=== PATIENT | female | born 1960 | race Caucasian/White ===

== ENCOUNTER 2016-12-01 11:11 | Emergency (ER) | payer OTHER ==
[2016-12-01 11:39] VITALS: BP 110/67
--- NOTE | 2016-12-01 12:35 | UC ---
Throat Pain/Nasal Micheal HPI - HPI Summary HPI Summary: 3 days of worsening sore throat , some nausea, fever chills and body aches - History of Current Complaint Chief Complaint: UCRespiratory Stated Complaint: THROAT PAIN Time Seen by Provider: 12/01/16 12:09 Hx Obtained From: Patient Hx Last Menstrual Period: NOW ?: No Onset/Duration: Sudden Onset, Lasting Days - 3, Still Present, Worse Since - today Severity: Moderate Pain Intensity: 6 Pain Scale Used: 0-10 Numeric Cough: None Associated Signs & Symptoms: Positive: Fever - Allergies/Home Medications Allergies/Adverse Reactions: Allergies Allergy/AdvReac Type Severity Reaction Status Date / Time No Known Allergies Allergy Verified 12/01/16 11:31 Home Medications: Home Medications Citalopram Hydrobromide [Celexa] 1 tab PO DAILY 12/01/16 [History Confirmed ] PMH/Surg Hx/FS Hx/Imm Hx Previously Healthy: Yes Endocrine History Of: Denies: Diabetes, Thyroid Disease Cardiovascular History Of: Denies: Cardiac Disorders, Hypertension, Pacemaker/ICD Respiratory History Of: Denies: COPD, Asthma GI/ History Of: Denies: Ulcer Cancer History Of: Denies: Breast Cancer - Surgical History Surgical History: Yes Surgery Procedure, Year, and Place: PYLENIDAL CYST SURGERY, EGG DONATION, COLONOSCOPY - Family History Known Family History: Negative: Other - breast CA - Social History Occupation: Employed Full-time Lives: With Family Alcohol Use: Occasionally Substance Use Type: None Smoking Status (MU): Never Smoked Tobacco - Immunization History Most Recent Influenza Vaccination: HAD FLU SHOT IN THE FALL Review of Systems Constitutional: Fever, Chills, Fatigue Skin: Negative Eyes: Negative ENT: Sore Throat Respiratory: Negative Cardiovascular: Negative Gastrointestinal: Other - nausea Genitourinary: Negative Motor: Negative Neurovascular: Negative Musculoskeletal: Negative Neurological: Negative Psychological: Negative All Other Systems Reviewed And Are Negative: Yes Physical Exam Triage Information Reviewed: Yes Appearance: Well-Nourished, Ill-Appearing, Pain Distress Vital Signs: Initial Vital Signs Temp 100.5 F 12/01/16 11:33 Pulse 77 12/01/16 11:33 Resp 16 12/01/16 11:33 BP 110/67 12/01/16 11:33 Pulse Ox 98 12/01/16 11:33 Vital Signs Reviewed: Yes Eye Exam: Normal Eyes: Positive: Conjunctiva Clear ENT Exam: Other ENT: Positive: Hearing grossly normal, Pharyngeal erythema, TMs normal. Negative: Nasal congestion, Nasal drainage, Tonsillar swelling, Tonsillar exudate, Trismus, Muffled/hoarse voice Dental Exam: Normal Neck exam: Normal Neck: Positive: Supple, Nontender, No Lymphadenopathy Respiratory Exam: Normal Respiratory: Positive: Chest non-tender, Lungs clear, Normal breath sounds, No respiratory distress, No accessory muscle use Cardiovascular Exam: Normal Cardiovascular: Positive: RRR, No Murmur, Pulses Normal, Brisk Capillary Refill Abdominal Exam: Normal Abdomen Description: Positive: Nontender, No Organomegaly, Soft Bowel Sounds: Positive: Present Musculoskeletal Exam: Normal Musculoskeletal: Positive: Strength Intact, ROM Intact, No Edema Neurological Exam: Normal Neurological: Positive: Alert Psychological Exam: Normal Skin Exam: Normal Diagnostics - Laboratory Diagnostic Studies Completed/Ordered: Strep A- invalid x 2 Throat Pain/Nasal Course/Dx - Course Assessment/Plan: amoxicillin, ibuprofen, tylenol, rest increase fluids, follow with pcp re-check prn - Differential Dx/Diagnosis Differential Diagnosis/HQI/PQRI: Laryngitis, Otitis Media, Peritonsillar Abscess , Pharyngitis, Sinusitis, URI Provider Diagnoses: Pharyngitis Discharge - Discharge Plan Condition: Stable Disposition: HOME Prescriptions: Amoxicillin CAP* 500 mg PO Q12H #20 cap Patient Education Materials: Ibuprofen (By mouth), Amoxicillin (By mouth), Pharyngitis (ED) Referrals: Rajesh Griffith MD [Primary Care Provider] - If Needed
== END 2016-12-01 12:49 | disposition home or self-care (01) ==
LOC: UCEAST 11:11
DX: J02.9 Acute pharyngitis, unspecified (principal)
CPT/HCPCS: 99212; G0463

== ENCOUNTER 2016-12-04 17:24 | Emergency (ER) | payer OTHER ==
[2016-12-04 17:45] VITALS: BP 117/79
--- NOTE | 2016-12-04 18:06 | UC ---
Throat Pain/Nasal Micheal HPI - HPI Summary HPI Summary: Seen 4 days ago for sore throat---rx with amoxicillin, is not getting better as fast as she felt she should be---now has worsening sinus pain, - History of Current Complaint Chief Complaint: UCRespiratory Stated Complaint: THROAT PAIN Time Seen by Provider: 12/04/16 17:50 Hx Obtained From: Patient Hx Last Menstrual Period: March 2016 ?: No Onset/Duration: Sudden Onset, Lasting Days - 5, Still Present - but a little better Severity: Moderate - in sinus Cough: None Associated Signs & Symptoms: Positive: Sinus Discomfort, Nasal Discharge, Fever - no resolved - Allergies/Home Medications Allergies/Adverse Reactions: Allergies Allergy/AdvReac Type Severity Reaction Status Date / Time No Known Allergies Allergy Verified 12/01/16 11:31 Home Medications: Home Medications Ibuprofen TAB* [Advil TAB*] 12/04/16 [History] Pseudoephedrine TAB* [Sudafed TAB*] 12/04/16 [History] PMH/Surg Hx/FS Hx/Imm Hx Previously Healthy: Yes Endocrine History Of: Denies: Diabetes, Thyroid Disease Cardiovascular History Of: Denies: Cardiac Disorders, Hypertension, Pacemaker/ICD Respiratory History Of: Denies: COPD, Asthma GI/ History Of: Denies: Ulcer Cancer History Of: Denies: Breast Cancer - Surgical History Surgical History: Yes Surgery Procedure, Year, and Place: PYLENIDAL CYST SURGERY, EGG DONATION, COLONOSCOPY - Family History Known Family History: Negative: Other - breast CA - Social History Occupation: Employed Full-time Lives: With Family Alcohol Use: Occasionally Substance Use Type: None Smoking Status (MU): Never Smoked Tobacco - Immunization History Most Recent Influenza Vaccination: HAD FLU SHOT IN THE FALL Review of Systems Constitutional: Fever - 5 days ago, Fatigue - continues Skin: Negative Eyes: Negative ENT: Negative Respiratory: Negative Cardiovascular: Negative Gastrointestinal: Negative Genitourinary: Negative Motor: Negative Neurovascular: Negative Musculoskeletal: Negative Neurological: Negative Psychological: Negative All Other Systems Reviewed And Are Negative: Yes Physical Exam Triage Information Reviewed: Yes Appearance: Well-Appearing, No Pain Distress, Well-Nourished Vital Signs: Initial Vital Signs Temp 98.8 F 12/04/16 17:40 Pulse 64 12/04/16 17:40 Resp 12 12/04/16 17:40 BP 117/79 12/04/16 17:40 Pulse Ox 98 12/04/16 17:40 Vital Signs Reviewed: Yes Eye Exam: Normal Eyes: Positive: Conjunctiva Clear ENT Exam: Normal ENT: Positive: Normal ENT inspection, Hearing grossly normal, Pharynx normal, Nasal congestion, Nasal drainage, TMs normal. Negative: Tonsillar swelling, Tonsillar exudate, Trismus, Muffled/hoarse voice Dental Exam: Normal Neck exam: Normal Neck: Positive: Supple, Nontender, No Lymphadenopathy Respiratory Exam: Normal Respiratory: Positive: Chest non-tender, Lungs clear, Normal breath sounds, No respiratory distress, No accessory muscle use Cardiovascular Exam: Normal Cardiovascular: Positive: RRR, No Murmur, Pulses Normal, Brisk Capillary Refill Musculoskeletal Exam: Normal Musculoskeletal: Positive: Strength Intact, ROM Intact, No Edema Neurological Exam: Normal Neurological: Positive: Alert, Muscle Tone Normal Psychological Exam: Normal Skin Exam: Normal Throat Pain/Nasal Course/Dx - Course Assessment/Plan: finish antibiodics, add flonase for sinus symptoms, follow with pcp prn - Differential Dx/Diagnosis Differential Diagnosis/HQI/PQRI: Influenza, Pharyngitis, Sinusitis, URI Provider Diagnoses: pharyngitis, uri Discharge - Discharge Plan Condition: Stable Disposition: HOME Prescriptions: Fluticasone NASAL SPRAY 50MCG* [Flonase NASAL SPRAY 50MCG*] 2 spray BOTH NARES DAILY #1 btl Patient Education Materials: Pharyngitis (ED), Rhinosinusitis (ED), How to Use Nasal [place] (ED) Referrals: Rajesh Griffith MD [Primary Care Provider] - If Needed
== END 2016-12-04 18:15 | disposition home or self-care (01) ==
LOC: UCEAST 17:24
DX: J06.9 Acute upper respiratory infection, unspecified (principal); J02.9 Acute pharyngitis, unspecified
CPT/HCPCS: 99211; G0463

== ENCOUNTER 2017-04-20 23:05 | Emergency (ER) | payer OTHER ==
--- NOTE | 2017-04-21 00:23 | ED ---
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---not completely sure about LOC - History Of Current Complaint Chief Complaint: EDFacialInjury Stated Complaint: FALL/HEAD INJURY Time Seen by Provider: 04/21/17 00:14 Hx Obtained From: Patient Hx Last Menstrual Period: March 2016 Mechanism Of Injury: Blunt Trauma, Fall From A Standing Position Onset/Duration: Started Hours Ago, Traumatic, Still Present Onset of Pain: Immediate Severity Currently: Moderate Severity Initially: Moderate Pain Intensity: 7 Pain Scale Used: 0-10 Numeric Location of Head Injury: Frontal Location: Discrete At: - mostly nose Character: Pressure, Aching Alleviating Factor(s): Rest, Ice Associated Signs And Symptoms: Swelling, Bruising - Allergies/Home Medications Allergies/Adverse Reactions: Allergies Allergy/AdvReac Type Severity Reaction Status Date / Time No Known Allergies Allergy Verified 12/01/16 11:31 PMH/Surg Hx/FS Hx/Imm Hx Previously Healthy: Yes Endocrine/Hematology History: Denies: Hx Diabetes, Hx Thyroid Disease Cardiovascular History: Denies: Hx Hypertension, Hx Pacemaker/ICD Respiratory History: Denies: Hx Asthma, Hx Chronic Obstructive Pulmonary Disease (COPD) GI History: Denies: Hx Ulcer Sensory History: Denies: Hx Hearing Aid Psychiatric History: Denies: Hx Panic Disorder - Cancer History Hx Chemotherapy: No Hx Radiation Therapy: No - Surgical History Surgery Procedure, Year, and Place: PYLENIDAL CYST SURGERY, EGG DONATION, COLONOSCOPY Hx Anesthesia Reactions: No - Immunization History Hx Pertussis Vaccination: No Immunizations Up to Date: Yes Infectious Disease History: No Infectious Disease History: Denies: Hx Clostridium Difficile, Hx Hepatitis, Hx Human Immunodeficiency Virus (HIV), Hx of Known/Suspected MRSA, Hx Shingles, Hx Tuberculosis, Hx Known/ Suspected VRE, Hx Known/Suspected VRSA, History Other Infectious Disease, Traveled Outside the [place] in Last 30 Days - Family History Known Family History: Positive: Other - breast CA - Social History Occupation: Employed Full-time Lives: With Family Alcohol Use: Occasionally Hx Substance Use: No Substance Use Type: Reports: None Hx Tobacco Use: No Smoking Status (MU): Never Smoked Tobacco Review of Systems Constitutional: Negative Eyes: Negative ENT: Other Positive: Epistaxis, Other - nasal pain, Cardiovascular: Negative Respiratory: Negative Gastrointestinal: Negative Genitourinary: Negative Musculoskeletal: Other Positive: Arthralgia - right knee Skin: Other Positive: Other - abrasion on face Neurological: Negative Psychological: Normal All Other Systems Reviewed And Are Negative: Yes Physical Exam Triage Information Reviewed: Yes Vital Signs On Initial Exam: Initial Vitals Temp Pulse Resp BP Pulse Ox 97.6 F 61 14 87/60 98 04/20/17 23:16 04/20/17 23:16 04/20/17 23:16 04/20/17 23:16 04/20/17 23:16 Vital Signs Reviewed: Yes Appearance: Positive: Well-Appearing, Well-Nourished, Pain Distress - mild, Signs of Trauma - abrasion on face and nose and right knee Skin: Positive: Warm, Skin Color Reflects Adequate Perfusion, Dry Head/Face: Positive: Other - elyssa; head facal abrasion and nasal abrasion, evidence of epistaxis that has now resolved. Negative: Temporal Artery Tenderness, TMJ Tenderness, Scalp, Cephalohematoma Eyes: Positive: Normal, EOMI, TAMIKO, Conjunctiva Clear ENT: Positive: Normal ENT inspection, Hearing grossly normal, Pharynx normal, TMs normal, Other - blood on narss, noseptal hematoma. Negative: Tonsillar swelling, Tonsillar exudate, Trismus Neck: Positive: Supple, Nontender, No Lymphadenopathy Respiratory/Lung Sounds: Positive: Clear to Auscultation, Breath Sounds Present , Decreased Breath Sounds Cardiovascular: Positive: Normal, RRR, Pulses are Symmetrical in both Upper and Lower Extremities Abdomen Description: Positive: Nontender, No Organomegaly, Soft Bowel Sounds: Positive: Present Musculoskeletal: Positive: Strength/ROM Intact, Pain @ - right knee Neurological: Positive: Normal, Sensory/Motor Intact, Alert, Oriented to Person Place, Time. Negative: Dysphagia Psychiatric: Positive: Normal, Affect/Mood Appropriate AVPU Assessment: Alert - Thomas Coma Scale Best Eye Response: 4 - Spontaneous Best Motor Response: 6 - Obeys Commands Best Verbal Response: 5 - Oriented Coma Scale Total: 15 Diagnostics - Vital Signs Vital Signs Temp Pulse Resp BP Pulse Ox 04/20/17 23:18 97.6 F 61 14 87/60 98 04/20/17 23:16 97.6 F 61 14 87/60 98 - Laboratory Diagnostic Studies Comment: nasal bone fractures, ct of brain and xray of right knee WNL Lab Statement: Any lab studies that have been ordered have been reviewed, and results considered in the medical decision making process. Re-Evaluation - Re-Evaluation First Eval Change: Improved - Alert and orientated, 1/2 cm laceration on nose repaired with skin glue excellent approximation Head Injury Course/Dx Assessment/Plan: abrasion care, post concussion and head injury care, follow with PCP/ENT - Diagnoses Differential Diagnosis/HQI/PQRI: Concussion With LOC, Concussion Without LOC, Contusion, Nasal Fracture Provider Diagnoses: Concussion syndrome, Nasal fracture, Abrasion of face, Abrasion of right knee Is Visit Related: No Discharge - Discharge Plan Condition: Stable Disposition: HOME Patient Education Materials: Acetaminophen (By mouth), Ibuprofen (By mouth), Nasal Fracture (ED), Concussion (ED), Abrasion (ED), Post Concussion Syndrome ( ED), Ice Pack Application (ED) Referrals: Rajesh Griffith MD [Primary Care Provider] - 1 Week Additional Instructions: BACITRACIN IS PREFERRED OVER TRIPLE ANTIBIOTIC OINTMENT
[2017-04-21] MEDS ORDERED: traMADol TAB* 50 MG PO ONE (00:25)
[2017-04-21] MEDS ORDERED: Ondansetron ODT TAB* 4 MG PO ONE (00:26)
[2017-04-21 05:08] VITALS: BP 100/57
--- NOTE | 2017-04-21 07:57 | RAD ---
INDICATION: Head injury. COMPARISON: Comparison is made with a prior MRI of the brain from August 04, 2015. TECHNIQUE: Contiguous axial sections of the brain were obtained from the skull base to the vertex without contrast. FINDINGS: The ventricles, cisterns and sulci are within normal limits. No significant focal abnormality or mass effect is seen. There is no evidence for hemorrhage. No significant focal osseous abnormality is seen. The visualized portion of the paranasal sinuses and mastoid air cells appear clear. IMPRESSION: NO EVIDENCE FOR ACUTE INTRACRANIAL ABNORMALITY.
--- NOTE | 2017-04-21 07:58 | RAD ---
INDICATION: Right knee injury. TECHNIQUE: 4 views of the right knee were obtained. FINDINGS: The bones are in normal alignment. No joint effusion or fracture is seen. Joint spaces appear maintained. IMPRESSION: NO EVIDENCE FOR FRACTURE.
--- NOTE | 2017-04-21 08:00 | RAD ---
INDICATION: Facial trauma COMPARISON: None TECHNIQUE: Axial source images were acquired from the vertex of the mandible through the orbits. Coronal and sagittal reconstructed images were acquired. FINDINGS: Bones: There are multiple, bilateral mildly displaced nasal bone fractures. There are no other facial bone fractures. The nasal septum appears attenuated. Orbits: The globes and intraconal structures appear intact. The optic nerves are symmetric. Extraocular muscles appear normal. There is no intraconal inflammatory change or retrobulbar mass.. Paranasal sinuses: The paranasal sinuses are clear. Brain: There are no acute abnormalities of the visualized brain parenchyma. Soft tissues: There is soft tissue density nasal passageway most consistent with blood. Other: None The visualized soft tissue elements about the neck appear normal. IMPRESSION: NASAL BONE FRACTURES. APPARENT PARTIAL DEMINERALIZATION OF THE NASAL SEPTUM.
== END 2017-04-21 03:15 | disposition home or self-care (01) ==
LOC: ED 23:05
DX: S00.81XA Abrasion of other part of head, initial encounter (principal); S06.0X9A Concussion with loss of consciousness of unspecified duration, initial encounter; R04.0 Epistaxis; S80.211A Abrasion, right knee, initial encounter; W01.0XXA Fall on same level from slipping, tripping and stumbling without subsequent striking against object, initial encounter; Y93.9 Activity, unspecified; Y92.89 Other specified places as the place of occurrence of the external cause
CPT/HCPCS: 70450; 70486; 99282; A9270-GY

== ENCOUNTER 2018-12-26 19:02 | Emergency (ER) | payer OTHER ==
[2018-12-26 19:13] VITALS: BP 99/66
--- NOTE | 2018-12-26 19:34 | UC ---
Throat Pain/Nasal Micheal HPI - HPI Summary HPI Summary: C/O SORE THROAT X2-3 DAYS. PT RECENTLY HAD SINUS INFECTION; SAW PCP ON 11/27/18 AND WAS PUT ON ANTIBIOTICS AT THAT TIME. - History of Current Complaint Chief Complaint: UCRespiratory Stated Complaint: SORE THROAT Time Seen by Provider: 12/26/18 19:14 Hx Obtained From: Patient Hx Last Menstrual Period: March 2016 ?: No Onset/Duration: Sudden Onset, Lasting Days Severity: Moderate Pain Intensity: 4 Associated Signs & Symptoms: Positive: Dysphagia - Allergies/Home Medications Allergies/Adverse Reactions: Allergies Allergy/AdvReac Type Severity Reaction Status Date / Time No Known Allergies Allergy Verified 12/26/18 19:13 Home Medications: Home Medications D-Methorphan/PE/Acetaminophen [Vicks Dayquil Cold & Flu 10-5-325 mg/15Ml] 1 liq PO PRN 12/26/18 [History] PMH/Surg Hx/FS Hx/Imm Hx Previously Healthy: Yes - Surgical History Surgical History: Yes Surgery Procedure, Year, and Place: PYLONIDAL CYST SURGERY, EGG DONATION, COLONOSCOPY - Family History Known Family History: Positive: Other - breast CA - Social History Alcohol Use: Weekly Substance Use Type: None Smoking Status (MU): Never Smoked Tobacco - Immunization History Most Recent Influenza Vaccination: HAD FLU SHOT IN THE FALL Review of Systems All Other Systems Reviewed And Are Negative: Yes Constitutional: Positive: Negative Skin: Positive: Negative, Rash ENT: Positive: Sore Throat Respiratory: Positive: Negative Cardiovascular: Positive: Negative Gastrointestinal: Positive: Negative Genitourinary: Positive: Negative Motor: Positive: Negative Neurovascular: Positive: Negative Musculoskeletal: Positive: Negative Neurological: Positive: Negative Psychological: Positive: Negative Is Patient Immunocompromised?: No Physical Exam Vital Signs: Initial Vital Signs Temp 97.5 F 12/26/18 19:06 Pulse 66 12/26/18 19:06 Resp 16 12/26/18 19:06 BP 99/66 12/26/18 19:06 Pulse Ox 98 12/26/18 19:06 Throat Pain/Nasal Course/Dx - Course Course Of Treatment: hx obtained, exam performed, meds reviewed, rapid strep was , - Differential Dx/Diagnosis Differential Diagnosis/HQI/PQRI: Influenza, Laryngitis, Otitis Media, Pharyngitis, Sinusitis, URI Provider Diagnosis: Serous otitis media Discharge - Sign-Out/Discharge Documenting (check all that apply): Patient Departure All imaging exams completed and their final reports reviewed: No Studies - Discharge Plan Condition: Stable Disposition: HOME Patient Education Materials: Serous Otitis Media (ED) Referrals: Rajesh Griffith MD [Primary Care Provider] - Additional Instructions: 1. your strep test was negative 2. I would recommend salt water gargles, an antihistamine suche as zyrtec or claritin 3. Increase fluid intake and stay rested. 4. Follow up as needed. - Billing Disposition and Condition Condition: STABLE Disposition: Home
== END 2018-12-26 19:55 | disposition home or self-care (01) ==
LOC: UCEAST 19:02
DX: H65.90 Unspecified nonsuppurative otitis media, unspecified ear (principal); J02.9 Acute pharyngitis, unspecified; R13.10 Dysphagia, unspecified
CPT/HCPCS: 87651; 99211; G0463

== ENCOUNTER → 2019-02-22 05:43 | Day surgery (SDC) | payer OTHER ==
[~2019-02-22 05:43] MED LIST: Buffered Lidocaine 1% SYRIN* 1 ML/SYRINGE INTRADERM ONE; Dexamethasone TAB* 4 MG ONE; Dexamethasone TAB* 4 MG PO ONE; DiMENhydriNATE IV* 50 MG/ML VIAL IV PUSH PRN; Famotidine IV* 10 MG/ML 2 ML (20 mg) IV ONE; Famotidine IV* 10 MG/ML 2 ML (20 mg) ONE; KETAMINE HCL* 50 MG/ML 10 ML VIAL ONE; Lactated Ringers 1000 ML Bag* 1,000 ML IV SCH; Lidocaine 1% INJ* 10 MG/ML 30 ML SDV ONE; Lidocaine 2% PF * 5 ML VIAL ONE; Midazolam* 1 MG/ML 5 ML VIAL (5 MG) ONE; Naloxone* 0.4 MG/ML 1 ML VIAL IV PRN; Ondansetron INJ* 2 MG/ML VIAL ONE; PROCHLORPERAZINE INJ 5 MG/ML 2 ML VIAL IV PRN; Propofol* 500 MG/50 ML BTL ONE; ceFAZolin 2 GM PREMIX in ORs 2 GM/50 ML BAG IVPB ONE; fentaNYL* 50 MCG/ML 2 ML VIAL (100 MCG VIAL) IV PRN; fentaNYL* 50 MCG/ML 2 ML VIAL (100 MCG VIAL) ONE; oxyCODONE/Acetamin 5/325 MG* TAB PO PRN
--- NOTE | 2019-02-22 08:41 | BRIEFOPN ---
Brief Operative Note - Surgery Procedures: Procedures OPERATIVE NOTE Pre-Operative Diagnosis:Breast cancer Post-Operative Diagnosis:Same Procedure:Insertion of 8F left chest wall PowerPort, needle in Surgeon: Dahlia Pena MD Client Advisor:None Anesthesia: Local with MAC General with IVF:min EBL:min Specimen:none Drain: none Wound Class:One TO PACU
[2019-02-22 09:18] VITALS: BP 108/68
--- NOTE | 2019-02-22 21:24 | OP ---
DATE OF OPERATION: 02/22/19 - [facility] DATE OF : 64 SURGEON: Christiano Pena MD ROOFING SUPERINTENDENT: None. ANESTHESIOLOGIST: Dr. Richardson. ANESTHESIA: Local with monitored anesthesia care. PRE-OP DIAGNOSIS: Right breast cancer. POST-OP DIAGNOSIS: Right breast cancer. OPERATIVE PROCEDURE: Insertion of an 8-Thai left chest wall PowerPort. ESTIMATED BLOOD LOSS: Minimal. WOUND CLASSIFICATION: 1. COMPLICATIONS: None. DRAINS: None. DESCRIPTION OF PROCEDURE: Written informed consent was obtained. The left chest was marked with indelible ink and preoperative antibiotics were administered. The patient was taken to the operating room and placed in the supine position. Sequential compression devices and a warming blanket were applied. The left and right chest and neck were prepped and draped in the usual sterile fashion. Time-out verification was completed. The patient was placed in Trendelenburg position. 1% lidocaine with epinephrine was used to infiltrate the area in the left infraclavicular area and an 18-gauge Cook needle was used to puncture the subclavian vein in usual fashion on the second pass. There was good blood return. The guidewire was inserted and confirmed to be in the superior vena cava by fluoroscopy. Next, a small transverse incision was made several centimeters below the initial puncture site and a subcutaneous pocket was made inferior to this incision. Hemostasis was assured. The catheter was then tunneled from the pocket site to the puncture site. Using the sheath dilator and peel-away system, the catheter was inserted into the junction between the right atrium and superior vena cava. The catheter was cut to the appropriate length and attached to the port, which was placed in the pocket. It was secured to the subcutaneous tissue with 2 separate 2-0 Prolene sutures. Fluoroscopy was used to confirm the position. There was no evidence of kinking or twisting. The catheter flushed and withdrew blood well. The pocket site was closed with running 3-0 and 4-0 Vicryl suture. The right angle Forde needle was then used to access the port and was flushed with heparinized saline. The needle was left in place as she was to receive chemotherapy today. A sterile occlusive dressing was applied. The patient tolerated the procedure well and was taken to the recovery room in stable condition. Post-procedural chest x-ray showed the catheter to be in good position without pneumothorax. [id number]/[facility] #: [id number] MTDD
== END | disposition home or self-care (01) ==
LOC: OR 05:43
PROVIDERS: ATTEND Surgery
DX: C50.411 Malignant neoplasm of upper-outer quadrant of right female breast (principal)
CPT/HCPCS: 71045; 76000; C1788; J0690; J1642; J2250; J2405; J2704; J3010; J8540

== ENCOUNTER 2019-11-16 10:41 | Emergency (ER) | payer OTHER ==
--- NOTE | 2019-11-16 11:00 | ED ---
Upper Extremity Pain - HPI Summary HPI Summary: The patient is a 58-year-old female presenting to [facility] with a chief complaint of a ring stuck on her left fourth finger this morning. She reports that she hasnt worn this ring in a few years due to weight gain, and she didnt realize that she had chosen this specific one, as she usually wears a different but similar one. The ring went on over the joint somewhat easily because she had lotion on her hands, but she did notice that it was slightly more difficult than the ring she has been wearing. Once she noticed that it was the incorrect ring, she attempted to take it off using various methods of soap, lotion, and dental floss, without any relief. The finger is swelling, but she denies any numbness or paresthesias. Symptoms currently rated 2/10 in severity. Past medical history significant for Turners syndrome, anxiety, breast cancer. Nonsmoker, no EtOH, no substance use. Medications reviewed. Allergies noted. - History of Current Complaint Chief Complaint: EDGeneral Stated Complaint: RING STUCK ON FINGER PER PT Time Seen by Provider: 11/16/19 10:51 Hx Obtained From: Patient Hx Last Menstrual Period: March 2016 Mechanism Of Injury: Other - ring stuck on finger Onset/Duration: Started Minutes Ago, Still Present Timing: Constant Severity Initially: Mild Severity Currently: Moderate Pain Location: Finger - left fourth Aggravating Factor(s): Nothing Alleviating Factor(s): Nothing Associated Signs & Symptoms: Positive: Swelling. Negative: Numbness/Tingling - Allergies/Home Medications Allergies/Adverse Reactions: Allergies Allergy/AdvReac Type Severity Reaction Status Date / Time seasonal Allergy Mild Runny Nose Uncoded 02/22/19 06:24 PMH/Surg Hx/FS Hx/Imm Hx Endocrine/Hematology History: Denies: Hx Diabetes, Hx Thyroid Disease Cardiovascular History: Denies: Hx Hypertension, Hx Pacemaker/ICD, Other Cardiovascular Problems/ Disorders Respiratory History: Denies: Hx Asthma, Hx Chronic Obstructive Pulmonary Disease (COPD) GI History: Denies: Hx Ulcer, Other GI Disorders History: Denies: Hx Renal Disease Musculoskeletal History: Denies: Other Musculoskeletal History Sensory History: Denies: Hx Contacts or Glasses, Hx Hearing Aid Opthamlomology History: Denies: Hx Contacts or Glasses Neurological History: Reports: Hx Headaches, Other Neuro Impairments/Disorders - turners syndrome Psychiatric History: Reports: Hx Anxiety - on meds, Hx Depression - on meds Denies: Hx Panic Disorder - Cancer History Cancer Type, Location and Year: breast confirmed biopsy 01/26 at [facility] care Hx Chemotherapy: No Hx Radiation Therapy: No - Surgical History Surgical History: Yes Surgery Procedure, Year, and Place: PYLONIDAL CYST SURGERY, EGG DONATION, COLONOSCOPY Hx Anesthesia Reactions: No Infectious Disease History: No Infectious Disease History: Denies: Hx Clostridium Difficile, Hx Hepatitis, Hx Human Immunodeficiency Virus (HIV), Hx of Known/Suspected MRSA, Hx Shingles, Hx Tuberculosis, Hx Known/ Suspected VRE, Hx Known/Suspected VRSA, History Other Infectious Disease, Traveled Outside the [place] in Last 30 Days - Family History Known Family History: Positive: Other - breast CA - Social History Alcohol Use: None Hx Substance Use: No Substance Use Type: Reports: None Hx Tobacco Use: No Smoking Status (MU): Never Smoked Tobacco Review of Systems Positive: Other - swelling of the left fourth fniger Negative: Paresthesia, Numbness All Other Systems Reviewed And Are Negative: Yes Physical Exam - Summary Physical Exam Summary: General: Well appearing, no distress Cardiovascular: Skin is well perfused Pulmonary: No respiratory distress, no tachypnea Abdomen: Non-distended Extremities: Left ring finger with swelling and erythema secondary to obstructing ring Skin: Warm, pink, dry Psych: Normal affect Neuro: A&Ox3 Triage Information Reviewed: Yes Vital Signs On Initial Exam: Initial Vitals Temp Pulse Resp BP Pulse Ox 97.2 F 78 18 104/83 96 11/16/19 10:43 11/16/19 10:43 11/16/19 10:43 11/16/19 10:43 11/16/19 10:43 Vital Signs Reviewed: Yes Procedures - Procedure Summary Procedure Summary: Ring was removed from the left ring finger using trauma rod. Patient is feeling better, and she is comfortable with discharge. - Sedation Patient Received Moderate/Deep Sedation with Procedure: No Diagnostics - Vital Signs Vital Signs Temp Pulse Resp BP Pulse Ox 11/16/19 10:43 97.2 F 78 18 104/83 96 - Laboratory Lab Statement: Any lab studies that have been ordered have been reviewed, and results considered in the medical decision making process. Re-Evaluation - Re-Evaluation First Eval Re-Evaluation Time: 11:05 Change: Improved Comment: Ring removed. She is feeling better. Plan for discharge. Course/Dx - Course Course Of Treatment: 58 y/o female presenting for a ring stuck on the left fourth finger onset this morning after putting the wrong one on. There is swelling in the finger, but she denies numbness or tingling. She has used various removal techniques at home to no success. Physical exam reveals swelling ad erythema of the left ring finger secondary to obstructing ring. The ring was removed with trauma rod. Patient is feeling better and is safe for discharge. Patient understands and agrees with plan. - Diagnoses Provider Diagnoses: Tight ring on finger Discharge ED - Sign-Out/Discharge Documenting (check all that apply): Patient Departure - Patient will be discharged home. - Discharge Plan Condition: Stable Disposition: HOME Patient Education Materials: Swollen Joint (ED) Referrals: Rajesh Griffith MD [Primary Care Provider] - 3 Days Additional Instructions: Follow up with your primary care provider in 2-3 days. Return to the emergency department for any new or worsening symptoms. - Billing Disposition and Condition Condition: STABLE Disposition: Home - Attestation Statements Document Initiated by Rachel: Yes Documenting Scribe: Rocio Moses Provider For Whom Rachel is Documenting (Include Credential): Dr. Kj Yu DO Scribe Attestation: Rocio [place] scribed for Dr. Kj Yu DO on 11/16/19 at 1259. Scribe Documentation Reviewed: Yes Provider Attestation: The documentation as recorded by the Rocio robertson accurately reflects the service I personally performed and the decisions made by me, Dr. Kj Yu DO Status of Rachel Document: Viewed
[2019-11-16 11:17] VITALS: BP 103/72
== END 2019-11-16 11:16 | disposition home or self-care (01) ==
LOC: ED 10:41
DX: S60.445A External constriction of left ring finger, initial encounter (principal); W49.04XA Ring or other jewelry causing external constriction, initial encounter; Y92.9 Unspecified place or not applicable; F41.9 Anxiety disorder, unspecified; F32.9 Major depressive disorder, single episode, unspecified
CPT/HCPCS: 99281